=== PATIENT | female | born 1975 | race Asian ===

== ENCOUNTER 2017-05-29 09:58 | Day surgery (SDC) | payer OTHER ==
[~2017-05-29] VITALS: Ht 162.6 cm; Wt 71.3 kg
[2017-05-29] VITALS (9 sets, daily range): BP systolic 112–125; BP diastolic 55–72; PULSE 76–82; RESP 16–27; Ht 162.6 cm; Wt 71.3 kg
[~2017-05-29 09:58] MED LIST: DIPHENHYDRAMINE 50 MG INJ IV PRN; FENTAnyl 50 MCG/ML VIAL IV PRN; HYDROmorphONE (0.2 MG/ML) 10ML SYG IV PRN; MEPERIDINE 25 MG INJ IV PRN; ONDANSETRON 4 MG INJ IV PRN; OXYCODONE/ACETAMINOPHEN (5/325) TAB PO PRN; PROCHLORPERAZINE 10 MG INJ IV PRN
[2017-05-29] MEDS ORDERED: CEFAZOLIN 2 GM/50 ML (PMX) 50 ML IVPB ONE (10:00)
[2017-05-29] MEDS ORDERED: SOD CHLORIDE 0.9% 1,000 ML IV SCH (10:00)
[2017-05-29 11:13] LABS: BASOPHIL # 0.1 10^3/ul (0.0-0.1); BASOPHILS % 0.6 % (0.0-2.0); HEMATOCRIT 38.7 % (37.0-47.0); HEMOGLOBIN 12.9 g/dl (12.0-16.0); LYMPHOCYTES # 3.3 10^3/ul (0.8-2.9); LYMPHOCYTES % 33.9 % (15.0-51.0); MEAN CORPUSCULAR HEMOGLOBIN 28.2 pg (29.0-33.0); MEAN CORPUSCULAR HGB CONC 33.3 g/dl (32.0-37.0); MEAN CORPUSCULAR VOLUME 84.5 fl (82.0-101.0); MEAN PLATELET VOLUME 8.8 fl (7.4-10.4); MONOCYTE # 0.6 10^3/ul (0.3-0.9); MONOCYTES % 5.8 % (0.0-11.0); NEUTROPHIL # 4.8 10^3/ul (1.6-7.5); NEUTROPHILS % 49.4 % (39.0-77.0); PLATELET COUNT 308 10^3/UL (140-415); RED BLOOD COUNT 4.58 10^6/ul (4.20-5.40); RED CELL DISTRIBUTION WIDTH 12.8 % (11.5-14.5); WHITE BLOOD COUNT 9.8 10^3/ul (4.8-10.8)
[2017-05-29] MEDS ORDERED: LIDOCAINE 2% (SDV) 5 ML INJ ONE (12:07)
[2017-05-29] MEDS ORDERED: SUCCINYLCHOLINE CHLORIDE 100 MG/5 ML SYG IV ONE (12:07)
[2017-05-29] MEDS ORDERED: PROPOFOL 20 ML ONE (12:07)
[2017-05-29] MEDS ORDERED: FENTAnyl 50 MCG/ML VIAL ONE (12:08)
[2017-05-29] MEDS ORDERED: MIDAZOLAM 1 MG/ML 2 ML INJ ONE (12:08)
[2017-05-29] MEDS ORDERED: BUPIVACAINE 0.25% (MPF) 30 ML INJ ONE (12:29)
[2017-05-29] MEDS ORDERED: CEFAZOLIN 1 GM INJ ONE (13:19)
[2017-05-29] MEDS ORDERED: ROCURONIUM 50 MG INJ ONE (13:19)
[2017-05-29] MEDS ORDERED: ONDANSETRON 4 MG INJ ONE (13:20)
[2017-05-29] MEDS ORDERED: METOCLOPRAMIDE 10 MG INJ ONE (13:20)
[2017-05-29] MEDS ORDERED: DEXAMETHASONE 4 MG/ML 1 ML INJ ONE (13:20)
[2017-05-29] MEDS ORDERED: KETOROLAC 30 MG INJ ONE (13:42)
[2017-05-29] MEDS ORDERED: GLYCOPYRROLATE 0.4 MG INJ ONE (13:44)
[2017-05-29] MEDS ORDERED: NEOSTIGMINE 3 MG/3 ML SYRINGE ONE (13:44)
[2017-05-29] MEDS ORDERED: BUPIVACAINE 0.25% (MPF) 30 ML INJ INJ ONE (13:51)
--- NOTE | 2017-05-29 14:07 | OPR ---
Date/Time of Note Date/Time of Note DATE: 05/29/17 TIME: 14:03 Operative Report Procedure Date: May 29, 2017 Preoperative Diagnosis symptomatic gallstones Postoperative Diagnosis same Operation Performed 1. laparoscopic cholecystectomy 2. therapeutic injection of subcutaneous marcaine Surgeon: Leana MCGRATH Anesthesia Type: general Estimated Blood Loss: minimal Specimens gallbladder Grafts/Implants: none Complications: no Indications This is a 42-year-old female with symptomatic gallstones. She required surgical excision. Risks alternatives benefits and percent were discussed the patient. Patient expresses understanding and consents to the operation. Procedure Description Patient is taken to the OR and prepped and draped in usual sterile fashion. Surgical timeout is performed. IV antibiotics given. Infraumbilical transverse incision is made with a 15 blade. Dissection cautery was carried onto the fascia. The fascia is grasped with Billy's and divided with curved [place] scissors. 0 Vicryl U stitches placed into the fascia. Balloon Luong trocar is introduced pneumoperitoneum is established. Midepigastric 12 mm optical trocar right upper quadrant right flank 5 mm optical trocar was placed under direct visualization. Upon initial inspection there are some adhesions of the gallbladder which were taken down bluntly. Due to the gallbladder was firm dilation and could not be grasped with graspers and was aspirated with needle aspiration. The tissue was still pliable and was grasped and it upward and outward manner. This retraction allowed visualization of the cystic duct. The cystic duct was identified and further dissection it showed a critical view. The cystic duct was divided with 2 clips proximal and additionally with the staple line of 35 mm echelon vascular stapler due to the inflammatory thickened tissue which would not allow a 10 clip to go across the cystic duct completely. The cystic artery was divided with 2 clips proximal 1 clip distal. Gallbladder was taken of the gallbladder bed. There is good hemostasis. Gallbladder was retrieved using an Endo Catch bag. Ports removed under direct visualization. 0 Vicryl U stitch was tied down. Skin was closed with a running 4-0 Monocryl. Therapeutic subcutaneous injection was applied to all incision sites. Steri-Strips and dry dressings were applied. Leana MCGRATH May 29, 2017 14:07
[2017-05-29] MEDS ORDERED: HYDROCODONE/APAP (5/325) TAB PO ONE (14:30)
== END 2017-05-29 16:45 | disposition home or self-care (01) ==
LOC: SDS 09:58
PROVIDERS: ATTEND Surgery
DX: K80.10 Calculus of gallbladder with chronic cholecystitis without obstruction (principal); E66.9 Obesity, unspecified; Z68.27 Body mass index [BMI] 27.0-27.9, adult
CPT/HCPCS: 47562; 85025; 88304; J0690; J1100; J1885; J2250; J2405; J2710; J2765; J3010; Z7512; Z7610; J7999